=== PATIENT | female | born 1975 | race Caucasian/White ===

== ENCOUNTER 2023-05-13 13:21 | Outpatient (CLI) | payer BC, SELFPAY | END 2023-05-13 13:22 | disposition home or self-care (01) | PROVIDERS: Visit Provider Physician Assistant | DX: R53.83 Other fatigue (principal); Z83.49 Family history of other endocrine, nutritional and metabolic diseases; Z13.29 Encounter for screening for other suspected endocrine disorder; Z13.21 Encounter for screening for nutritional disorder | CPT/HCPCS: 82306; 84443 ==

== ENCOUNTER 2023-06-03 08:19 | Outpatient (CLI) | payer BC, SELFPAY ==
--- NOTE | 2023-06-03 08:45 | MM_ITS ---
Patient: JACK ZACARIAS Facility:?[facility] Patient ID:?[id number] Site Patient ID:?[id number]. Site :?[id number] Study:?XRay-Breast Bilateral 3D W/CAD-06/03/2023 2:21:18 PM Ordering Physician:?DR. TAPIA Final Report: BILATERAL SCREENING MAMMOGRAM WITH COMPUTER-AIDED DETECTION AND TOMOSYNTHESIS TECHNIQUE: CC and MLO views were obtained. These mammographic images have been obtained using full-field digital technique. These mammographic images were interpreted with the benefit of computer-aided detection. Breast Tomosynthesis was used in this interpretation. COMPARISON FILM: 10/02/19, 11/04/14. FINDINGS: There are scattered areas of fibroglandular density. IMPRESSION: There is no radiographic evidence for malignancy. ASSESSMENT: BI-RADS Category 1: Negative RECOMMENDATION: Routine screening mammogram in 1 year. A lay language report of this examination will be provided to the patient. Santino Chairez M.D. Diagnostic Radiologist [email or web address] DSM/sp R& Transcribed: 3:53 p.m. SP/Dictated by: Santino Chairez MD @ 06/10/2023 12:29:00 PM Signed by:?Santino Chairez MD @06/10/2023 3:59:24 PM (Electronic Signature)
== END 2023-06-03 08:20 | disposition home or self-care (01) ==
LOC: MAMMO 08:19
PROVIDERS: Visit Provider Physician Assistant
DX: Z12.31 Encounter for screening mammogram for malignant neoplasm of breast (principal)
CPT/HCPCS: 77063; 77067

== ENCOUNTER 2023-12-12 09:14 | Outpatient (CLI) | payer BC, SELFPAY | END 2023-12-12 09:15 | disposition home or self-care (01) | LOC: NFLDREF 12-15 15:27 | PROVIDERS: Visit Provider Emergency Medicine | DX: E78.1 Pure hyperglyceridemia (principal); E05.00 Thyrotoxicosis with diffuse goiter without thyrotoxic crisis or storm; Z13.1 Encounter for screening for diabetes mellitus | CPT/HCPCS: 80061; 82947; 84443 ==

== ENCOUNTER 2024-06-30 14:23 | Outpatient (CLI) | payer BC, SELFPAY ==
--- NOTE | 2024-06-30 14:40 | CRLHL7_ITS ---
For Patients: As a result of the Cures Act, medical imaging exams and procedure reports are released immediately into your electronic medical record. You may view this report before your referring provider. If you have questions, please contact your health care provider. COMPARISON: 06/03/2023 TECHNIQUE: Digital mammogram in CC and MLO projections including computer-aided detection (CAD) and tomosynthesis. BREAST COMPOSITION: The breasts are almost entirely fatty. FINDINGS: No suspicious findings. ASSESSMENT: BI-RADS 1 Negative RECOMMENDATION: Annual screening mammogram. A lay language report of this examination will be provided to the patient. Dictated by: Santino Chairez MD @ 07/01/2024 12:30:16 (Electronically Signed)
== END 2024-06-30 14:24 | disposition home or self-care (01) ==
LOC: MAMMO 14:24
PROVIDERS: PCP Emergency Medicine; Visit Provider Physician Assistant
DX: Z12.31 Encounter for screening mammogram for malignant neoplasm of breast (principal)
CPT/HCPCS: 77063; 77067

== ENCOUNTER 2024-06-30 15:42 | Outpatient (CLI) | payer BC, SELFPAY | END 2024-06-30 15:43 | disposition home or self-care (01) | LOC: NFLDREF 15:43 | PROVIDERS: PCP Emergency Medicine; Visit Provider Registered Nurse | DX: N92.0 Excessive and frequent menstruation with regular cycle (principal) | CPT/HCPCS: 84443 ==

== ENCOUNTER 2024-07-13 15:45 | Outpatient (CLI) | payer BC, SELFPAY ==
--- NOTE | 2024-07-13 16:00 | CRLHL7_ITS ---
For Patients: As a result of the Century Cures Act, medical imaging exams and procedure reports are released immediately into your electronic medical record. You may view this report before your referring provider. If you have questions, please contact your health care provider. INDICATION: Menorrhagia COMPARISON: None. TECHNIQUE: 2D howard-scale and color Doppler images were acquired of the pelvis using a transabdominal and transvaginal approach. Transvaginal imaging performed to better visualize the endometrial stripe and ovaries. FINDINGS: Sonographic images demonstrate a normal size and smooth outer contour of the uterus. Uterus measures 8.2 cm in length by 3.6 cm in AP diameter by 4.5 cm in transverse dimension. No uterine fibroid. The endometrial lining measures 5.9 mm in composite thickness. The right ovary measures 3.0 x 1.4 x 1.7 cm in size and the left ovary measures 1.9 x 2.7 x 1.9 cm. The ovaries demonstrate normal arterial and venous blood flow on color Doppler analysis. There are no suspicious fluid collections within the cul-de-sac. IMPRESSION: Endometrial thickness 5.9 millimeters. Dictated by Santino Chairez MD @ 07/14/2024 9:43:26 PM (Electronically Signed)
== END 2024-07-13 15:46 | disposition home or self-care (01) ==
LOC: US 15:45
PROVIDERS: PCP Emergency Medicine; Visit Provider Registered Nurse
DX: N92.0 Excessive and frequent menstruation with regular cycle (principal); R93.89 Abnormal findings on diagnostic imaging of other specified body structures
CPT/HCPCS: 76830; 76856